=== PATIENT | male | born 1995 | race American Indian/Alaskan Native ===

== ENCOUNTER 2018-04-01 03:29 | Emergency (ER) | payer SELFPAY ==
[2018-04-01 03:53] VITALS: BMI 19.8
[2018-04-01] MEDS ORDERED: Sodium Chloride 0.9% 1,000 ML IV STA (04:10)
[2018-04-01 04:18] VITALS: RESP 18; O2SAT 100
[2018-04-01 04:25] LABS: ALB/GLOB RATIO 1.5 (1.1-1.8); ALBUMIN 4.9 g/dL (3.0-4.8); ALT/SGPT 24 U/L (7-56); AST/SGOT 34 U/L (17-59); BLOOD UREA NITROGEN 18 mg/dL (7-21); CALCIUM 9.5 mg/dL (8.4-10.5); GFR AFRICAN-AMERICAN > 60; GFR NON-AFRICAN AMERICAN > 60
--- NOTE | 2018-04-01 04:28 | ED PDOC ---
Arrival/HPI - General Chief Complaint: Weakness/Neurological Deficit Time Seen by Provider: 04/01/18 03:43 Historian: Patient, Other (Friends) - History of Present Illness Narrative History of Present Illness (Text): 04/01/18 04:23 23 year old male, with no significant past medical history, presents to the emergency department s/p witnessed syncopal episode. Patient was at a pizza place with his friends when he "felt his eyes go dark" and suddenly fell down. As per friend, patient was unconscious for several seconds before waking up. Patient's friend denies seeing any foaming on mouth, eyes rolled back, or any shaking. Patient then preceded to sit down when he then had a similar episode and passed out for a couple seconds. Patient denies any family history of sudden or seizures. Patient denies any fever, chills, chest pain, shortness of breath, abdominal pain, nausea, vomiting, diarrhea, urinary symptoms, back pain, neck pain, headache, dizziness, or any other complaints. Time/Duration: Prior to Arrival Symptom Onset: Sudden Symptom Course: Resolved Quality: Unable to Describe Activities at Onset: Light Context: Standing, Other (Pizza place) Past Medical History - Provider Review Nursing Documentation Reviewed: Yes - Travel History Have you recently traveled outside [place] w/in the past 3 mons?: No Family/Social History - Physician Review Nursing Documentation Reviewed: Yes Family/Social History: No Known Family HX Allergies/Home Meds Allergies/Adverse Reactions: Allergies No Known Allergies Allergy (Unverified 04/01/18 04:09) Home Medications: Home Meds Medication Instructions Recorded Confirmed No Known Home Med 04/01/18 04/01/18 Review of Systems - Physician Review All systems were reviewed & negative as marked: Yes - Review of Systems Constitutional: absent: Fevers, Other (Chills) Eyes: absent: Vision Changes, Photophobia ENT: absent: Hearing Changes, Tinnitus Respiratory: absent: SOB Cardiovascular: Syncope. absent: Chest Pain Gastrointestinal: absent: Abdominal Pain, Diarrhea, Nausea, Vomiting Genitourinary Male: absent: Dysuria, Frequency, Hematuria Musculoskeletal: absent: Back Pain, Neck Pain Neurological: absent: Headache, Dizziness Physical Exam Vital Signs Reviewed: Yes Vital Signs Temp Pulse Resp BP Pulse Ox 04/01/18 07:12 98 F 73 18 113/67 100 04/01/18 05:07 95 H 18 128/65 100 04/01/18 04:17 98.6 F 79 18 120/73 100 Temperature: Afebrile Blood Pressure: Normal Pulse: Regular Respiratory Rate: Normal Appearance: Positive for: Well-Appearing, Non-Toxic, Comfortable Pain Distress: None Mental Status: Positive for: Alert and Oriented X 3 - Systems Exam Head: Present: Atraumatic, Normocephalic Pupils: Present: PERRL Extroacular Muscles: Present: EOMI Conjunctiva: Present: Normal Mouth: Present: Moist Mucous Membranes Neck: Present: Normal Range of Motion Respiratory/Chest: Present: Clear to Auscultation, Good Air Exchange. No: Respiratory Distress, Accessory Muscle Use Cardiovascular: Present: Regular Rate and Rhythm, Normal S1, S2. No: Murmurs Abdomen: No: Tenderness, Distention, Peritoneal Signs Back: Present: Normal Inspection Upper Extremity: Present: Normal Inspection. No: Cyanosis, Edema Lower Extremity: Present: Normal Inspection. No: Edema Neurological: Present: GCS=15, CN II-XII Intact, Speech Normal, Motor Func Grossly Intact, Normal Sensory Function, Gait Normal Skin: Present: Warm, Dry, Normal Color. No: Rashes Psychiatric: Present: Alert, Oriented x 3, Normal Insight, Normal Concentration Medical Decision Making ED Course and Treatment: 04/01/18 04:05 Impression: 23 year old male presents for two witnessed syncopal episodes. Differential Diagnosis Includes But Is not Limited To: Vasovagal syncope Seizure Congenital Heart Condition(HOKUM, Jervell-Calix) Plan: -- CT Head w/o Contrast -- labs -- EKG -- IV Fluids -- UA/UDS --Orthostatic BP -- Reassess and disposition Progress Notes: 04/01/18 03:51 EKG Ordered, reviewed, and independently interpreted the EKG. Interpretation NSR at 64 BPM with incomplete RBBB. No prolonged intervals. 04/01/18 6:00 CTH reveals no intracranial abnormalities. Orthostatic VS reviewed and unremarkable. Patient reassessed and deemed in no distress at this time. Findings of imaging results shared. Labs reviewed with UDS unremarakble. Less likely seizure due to no jerking witnessed by friends of patient and no post- ictal period. Return protocol discussed with patient who demonstrates understanding. He is ambulatory unassisted. He is stable for discharge. - Lab Interpretations Lab Results: 04/01/18 04:02 04/01/18 04:02 Lab Results 04/01/18 05:26: Urine Opiates Screen Negative, Urine Methadone Screen Negative, Ur Barbiturates Screen Negative, Ur Phencyclidine Scrn Negative, Ur Amphetamines Screen Negative, U Benzodiazepines Scrn Negative, U Oth Cocaine Metabols Negative, U Cannabinoids Screen Negative 04/01/18 05:26: Urine Color Yellow, Urine Appearance Clear, Urine pH 6.0, Ur Specific [place] 1.010, Urine Protein Negative, Urine Glucose (UA) Negative, Urine Ketones Negative, Urine Blood Negative, Urine Nitrate Negative, Urine Bilirubin Negative, Urine Urobilinogen 0.2, Ur Leukocyte Esterase Negative 04/01/18 04:02: Sodium 141, Potassium 3.9, Chloride 101, Carbon Dioxide 26, Anion Gap 18, BUN 18, Creatinine 1.1, Est GFR ( Amer) > 60, Est GFR (Non- Af Amer) > 60, Random Glucose 122 H, Calcium 9.5, Total Bilirubin 0.6, AST 34, ALT 24, Alkaline Phosphatase 117, Total Protein 8.2, Albumin 4.9 H, Globulin 3.3 , Albumin/Globulin Ratio 1.5 04/01/18 04:02: WBC 5.1, RBC 5.02, Hgb 16.4, Hct 45.5, MCV 90.6, MCH 32.7, MCHC 36.0, RDW 12.1, Plt Count 162, MPV 11.8 H, Gran % 60.4, Lymph % (Auto) 29.8, [place] % (Auto) 9.2 H, Eos % (Auto) 0.4 L, Baso % (Auto) 0.2, Gran # 3.08, Lymph # (Auto) 1.5, [place] # (Auto) 0.5, Eos # (Auto) 0.0, Baso # (Auto) 0.01 04/01/18 04:01: POC Glucose (mg/dL) 117 H I have reviewed the lab results: Yes - RAD Interpretation Radiology Orders: 04/01/18 04:21 HEAD W/O CONTRAST [CT] Stat - EKG Interpretation Interpreted by ED Physician: Yes Type: 12 lead EKG - Medication Orders Current Medication Orders: Discontinued Medications Sodium Chloride (Sodium Chloride 0.9%) 1,000 mls @ 999 mls/hr IV .Q1H1M STA Stop: 04/01/18 05:10 Last Admin: 04/01/18 04:45 Dose: 999 mls/hr eMAR Start Stop Document 04/01/18 04:45 DESMOND (Rec: 04/01/18 04:46 RG [id number]) Intravenous Solution Start Date 04/01/18 Start Time 04:29 - Scribe Statement The provider has reviewed the documentation as recorded by the Abelino Bauer Provider Scribe Attestation: All medical record entries made by the Scribjimi were at my direction and personally dictated by me. I have reviewed the chart and agree that the record accurately reflects my personal performance of the history, physical exam, medical decision making, and the department course for this patient. I have also personally directed, reviewed, and agree with the discharge instructions and disposition. Disposition/Present on Arrival - Present on Arrival Any Indicators Present on Arrival: No History of DVT/PE: No History of Uncontrolled Diabetes: No Urinary Catheter: No History of Decub. Ulcer: No History Surgical Site Infection Following: None - Disposition Have Diagnosis and Disposition been Completed?: Yes Diagnosis: Vasovagal episode Disposition: HOME/ ROUTINE Disposition Time: 06:30 Patient Plan: Discharge Condition: GOOD Discharge Instructions (ExitCare): Vasovagal Response (DC) Referrals: FAMILY PROVIDER,NO [Primary Care Provider] - Follow up with primary Forms: [employer] (Japanese)
[2018-04-01 04:42] LABS: BASO # 0.01 K/mm3 (0.0-2.0); BASO % 0.2 % (0.0-3.0); EOS % 0.4 % (1.5-5.0); GRAN # 3.08 (1.4-6.5); GRAN % 60.4 % (50.0-68.0); HEMOGLOBIN 16.4 g/dL (14.0-18.0); LYMPH # 1.5 (1.2-3.4); LYMPH % 29.8 % (22.0-35.0); MEAN CELL VOLUME 90.6 fl (80.0-105.0); MEAN CORPUSCULAR HEMOGLOBIN 32.7 pg (25.0-35.0); MEAN PLATELET VOLUME 11.8 fl (7.0-11.0); MONO # 0.5 (0.1-0.6); MONO % 9.2 % (1.0-6.0); RBC 5.02 10^6/uL (3.5-6.1); RED CELL DISTRIBUTION WIDTH 12.1 % (11.5-14.5); WHITE BLOOD COUNT 5.1 10^3/ul (4.5-11.0)
[2018-04-01 05:56] LABS: URINE BILIRUBIN NEGATIVE (NEGATIVE); URINE BLOOD NEGATIVE (NEGATIVE); URINE GLUCOSE (UA) NEGATIVE (NEGATIVE); URINE LEUKOCYTE ESTERASE NEGATIVE Leu/uL (NEGATIVE); URINE PROTEIN NEGATIVE mg/dL (<30 mg/dL); URINE UROBILINOGEN 0.2 E.U./dL (<1 E.U./dL)
[2018-04-01 06:02] LABS: URINE APPEARANCE CLEAR (CLEAR); URINE COLOR YELLOW (YELLOW)
[2018-04-01 06:33] LABS: BARBITURATES, UR NEGATIVE (NEGATIVE); BENZODIAZEPINES, UR NEGATIVE (NEGATIVE); OPIATES, UR NEGATIVE (NEGATIVE); PHENCYCLIDINE, UR NEGATIVE (NEGATIVE)
[2018-04-01 07:12] VITALS: BP 113/67; PULSE 73
[2018-04-01 07:13] VITALS: TEMP 98
--- NOTE | 2018-04-01 09:26 | CT ---
Date of service: 04/01/2018 PROCEDURE: CT HEAD WITHOUT CONTRAST. HISTORY: headache COMPARISON: None available. TECHNIQUE: Axial computed tomography images were obtained through the head/brain without intravenous contrast. Radiation dose: Total exam DLP = 789 mGy-cm. This CT exam was performed using one or more of the following dose reduction techniques: Automated exposure control, adjustment of the mA and/or kV according to patient size, and/or use of iterative reconstruction technique. FINDINGS: HEMORRHAGE: No intracranial hemorrhage. BRAIN: No mass effect or edema. No atrophy or chronic microvascular ischemic changes. VENTRICLES: Unremarkable. No hydrocephalus. CALVARIUM: Unremarkable. PARANASAL SINUSES: Mucosal thickening and mucosal retention cyst in the sphenoid sinus MASTOID AIR CELLS: Unremarkable as visualized. No inflammatory changes. OTHER FINDINGS: The report concurs with the preliminary [facility] report IMPRESSION: No acute intracranial findings
--- NOTE | 2018-04-01 09:30 | CARD ---
APPROVED REPORT Date of service: 04/01/2018 EKG Measurement Heart [id number] <Conclusion> Normal sinus rhythm rSr Pattern V1.
== END 2018-04-01 07:09 | disposition home or self-care (01) ==
LOC: ED 03:29
DX: R55 Syncope and collapse (principal)
CPT/HCPCS: 70450; 80053; 81003; 82948; 85025; 93005; 99285; G0480; J7030